=== PATIENT | female | born 1940 | race Caucasian/White ===

== ENCOUNTER 2016-12-06 11:45 | Outpatient (RCR) | payer MEDICARE, OTHER ==
[~2016-12-06 11:45] MED LIST: ACET325T38 PO; ASP325TEC PO; ASP81TEC PO; ASPI-983 PO; ASPI325T32 PO; CALC-250 PO; CHOL100011 PO; CHOL10007 PO; CIPR-226 PO; CLOP75TA PO; CRESTOR40 MG PO; Docusate Sodium PO; E400C PO; ENAL5TAB PO; ENLP5T PO; FLAX100031 PO; FLUO10CA29 PO; HYDR-3720 PO; Ibuprofen PO; LEVO100T7 PO; LISI-556 PO; LISI5TAB PO; LRT10T PO; LVT.088T PO; LVT.1T PO; MELO-195 PO; METO25TA PO; METO25TA2 PO; MTP25TSR PO; MULT1CAP27 PO; OMEG-12 PO; OMG1KC PO; ONDA4TAB11 PO; OXB5T PO; OXYB5TAB9 PO; PHEN200T27 PO; POLY119P PO; RANI75TA30 PO; RNT150T PO; ROSU20TA14 PO; SIMV20TA3 PO; SMV10T PO; TRAM50TA2 PO; UBID100T7 PO; VENL37.563 PO; VNL75T PO
== END 2017-03-06 | disposition home or self-care (01) ==
LOC: CARD 11:45
PROVIDERS: ATTEND Physician Assistant
DX: I25.10 Atherosclerotic heart disease of native coronary artery without angina pectoris (principal); I10 Essential (primary) hypertension; E78.2 Mixed hyperlipidemia; G47.33 Obstructive sleep apnea (adult) (pediatric)
CPT/HCPCS: 93225; 93226